=== PATIENT | female | born 1995 | race Hispanic/Latino ===

== ENCOUNTER 2018-04-18 10:51 | Emergency (ER) | payer OTHER ==
[2018-04-18] MEDS ORDERED: TETRACAINE HCL 0.5% 2ML OPTH ONE (12:16)
[2018-04-18] MEDS ORDERED: FLUORESCEIN SODIUM 0.6 MG/WRAP ONE (12:17)
--- NOTE | 2018-04-18 12:47 | EDPHYS ---
Physician Documentation [facility] Name: Keyla Watkins Age: 22 yrs Sex: Female : 1995 Arrival Date: 04/18/2018 Time: 10:52 Bed 30 Private MD: Unknown, Unknown ED Physician Shlomo Pang HPI: 04/18 11:51 This 22 yrs old Female presents to ER via Ambulatory with complaints of Eye jmm Problem. 11:51 The patient is experiencing blurred vision, pain, redness. Onset: The symptoms/episode jmm began/occurred gradually, 1 day(s) ago. Duration: the symptoms are continuous. Aggravated by light. This is a 22 year old female with no chronic medical conditions that presents to the ED with complaints of bilateral eye pain. Patient states developing irritation while at the park yesterday. Patient states she cleaned her contact and put them back in with worsening symptoms. Patient states pain has increased with increased sensitivity to light. . 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 - Social history:: Smoking status: Patient/guardian denies using tobacco. - Ebola Screening: : Patient denies travel to an Ebola-affected area in the 21 days before illness onset. ROS: 11:51 Constitutional: Negative for fever, chills, and weight loss. jmm 11:51 Cardiovascular: Negative for chest pain, palpitations, and edema, Respiratory: Negative for shortness of breath, cough, wheezing, and pleuritic chest pain. 11:51 Eyes: Positive for pain, redness, visual disturbance. 11:51 All other systems are negative. Exam: 11:51 Visual Acuity: The patient's visual acuity was not tested, because the patient was not [facility] able to be examined. 11:51 Head/Face: atraumatic. 11:51 ENT: Moist Mucus Membranes Neck: Trachea midline, Supple Chest/axilla: Normal chest wall appearance and motion. Cardiovascular: Regular rate and rhythm. No edema appreciated Respiratory: Normal respirations, no respiratory distress appreciated Abdomen/GI: Non distended, soft Back: Normal ROM Skin: General appearance color normal MS/ Extremity: Moves all extremities, no obvious deformities appreciated, no edema noted to the lower extremities 11:51 Constitutional: The patient appears alert, awake, uncomfortable. 11:51 Eyes: Extraocular movements: intact throughout, Conjunctiva: injected, bilaterally, Corneas: abrasion, is not appreciated, foreign body, is not appreciated, a fluorescein strip employed to appreciate the findings. Vital Signs: 11:01 BP 139 / 89; Pulse 86; Resp 17; Temp 98.0(TE); Pulse Ox 99% on R/A; Pain 10/10; tw2 MDM: 11:51 Patient medically screened. [facility] 12:44 Data reviewed: vital signs, nurses notes. Counseling: I had a detailed discussion with ellie the patient and/or guardian regarding: the historical points, exam findings, and any diagnostic results supporting the discharge/admit diagnosis, the need for outpatient follow up, to return to the emergency department if symptoms worsen or persist or if there are any questions or concerns that arise at home. 12:57 ED course: Patient continues to have pain the ED. IOP of 22 measured in both eyes. I ion discussed the patient with Dr. Ascencio whom will see the patient in clinic after discharge form the ED. . 04/18 11:51 Order name: Eye Tray; Complete Time: 12:22 [facility] 04/18 11:51 Order name: Fluoresene Opth strip; Complete Time: 12:22 [facility] Administered Medications: 12:01 Drug: Tetracaine Drops 0.5 % 1 drops Route: Ophthalmic; Site: both eyes; Disposition: 14:08 Co-signature as Attending Physician, Shlomo Pang MD I agree with the assessment and kdr plan of care. Disposition: 04/18/18 12:45 Discharged to Home. Impression: Ocular pain, unspecified eye. - Condition is Stable. - Discharge Instructions: Allergic Conjunctivitis, Adult. - Prescriptions for Ocuflox 0.3 % Ophthalmic Drops - instill 2 drop by OPHTHALMIC route every 6 hours for 2 days; 15 milliliter. - Medication Reconciliation Form, Thank You Letter, Antibiotic Education, Prescription Opioid Use form. - Follow up: Richard Ascencio MD; When: Upon discharge from the Emergency Department; Reason: Recheck today's complaints, Continuance of care, Re-evaluation by your physician. Signatures: Shlomo Pang MD MD [facility] Can Velez PA PA jm Kalyn Younger RN RN Enid Paz RN RN tw2 Corrections: (The following items were deleted from the chart) 12:50 11:51 Visual Acuity ordered. [facility] 12:51 12:22 Visual Acuity ordered. [facility] 12:53 12:45 04/18/2018 12:45 Discharged to Home. Impression: Ocular pain, unspecified eye. ss Condition is Stable. Forms are Medication Reconciliation Form, Thank You Letter, Antibiotic Education, Prescription Opioid Use. Follow up: Richard Ascencio; When: Upon discharge from the Emergency Department; Reason: Recheck today's complaints, Continuance of care, Re-evaluation by your physician. ellie
--- NOTE | 2018-04-18 12:47 | ER ---
Nurse's Notes [facility] Name: Keyla Watkins Age: 22 yrs Sex: Female : 1995 Arrival Date: 04/18/2018 Time: 10:52 Bed 30 Private MD: Unknown, Unknown Diagnosis: Ocular pain, unspecified eye Presentation: 04/18 10:59 Presenting complaint: Patient states: yesterday when i put my contacts in they hurt me tw2 and so i took them out, my vision was milky and when i woke up my eyes were better not milky now they are red and swollen, i have allergies but it stinging when i have my eye closed, went to a clinic and they put anesthesia in my eyes, they are numb but they didn't take the stinging away. Transition of care: patient was not received from another setting of care. Onset of symptoms was April 18, 2018. Risk Assessment: Do you want to hurt yourself or someone else? Patient reports no desire to harm self or others. Initial Sepsis Screen: Does the patient meet any 2 criteria? No. Patient's initial sepsis screen is negative. Does the patient have a suspected source of infection? No. Patient's initial sepsis screen is negative. Care prior to arrival: None. 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 - Social history:: Smoking status: Patient/guardian denies using tobacco. - Ebola Screening: : Patient denies travel to an Ebola-affected area in the 21 days before illness onset. Screenin:00 Abuse screen: Denies threats or abuse. Denies injuries from another. Nutritional ss screening: No deficits noted. Tuberculosis screening: No symptoms or risk factors identified. Never had TB. Fall Risk None identified. Assessment: 11:45 General: Appears distressed, uncomfortable, Behavior is cooperative, restless, Denies ss fever, feeling ill, fatigue, chills. Pain: Complains of pain in right eye and left eye Pain currently is 10 out of 10 on a pain scale. Quality of pain is described as burning. Neuro: Level of Consciousness is awake, alert, obeys commands, Oriented to person, place, time, situation, Pupils are PERRLA. Respiratory: Airway is patent Respiratory effort is even, unlabored, Respiratory pattern is regular, symmetrical. GI: Patient currently denies diarrhea, nausea, vomiting. EENT: redness noted to bilateral eyes. Pt reports irritation began yesterday, but became more severe this morning. . Derm: Skin is pink, warm \T\ dry. normal. 12:51 Reassessment: pt appears uncomfortable, but reports relief after tetracaine ss administration. Pt and family verbalize understanding importance of coming straight to Dr. Ascencio's office upon discharge. Vital Signs: 11:01 BP 139 / 89; Pulse 86; Resp 17; Temp 98.0(TE); Pulse Ox 99% on R/A; Pain 10/10; tw2 ED Course: 10:52 Patient arrived in ED. ag5 10:54 Unknown, Unknown is Private Physician. ag5 11:01 Triage completed. tw2 11:02 Arm band placed on. EKG completed in triage. Results shown to MD. tw2 11:42 Can Velez PA [facility] 11:42 Shlomo Pang MD is Attending Physician. [facility] 12:00 Patient has correct armband on for positive identification. Bed in low position. Call ss light in reach. 12:22 Kalyn Younger RN is Primary Nurse. 12:44 Richard Ascencio MD is Referral Physician. [facility] 12:53 No provider procedures requiring assistance completed. Patient did not have IV access ss during this emergency room visit. Administered Medications: 12:01 Drug: Tetracaine Drops 0.5 % 1 drops Route: Ophthalmic; Site: both eyes; ss Outcome: 12:45 Discharge ordered by . neyda 12:[address] Ascencio's office ss 12:53 Condition: good 12:53 Discharge instructions given to patient, family, Instructed on discharge instructions, follow up and referral plans. Demonstrated understanding of instructions, follow-up care. 12:53 Patient left the ED. ss Signatures: Can Velze PA PA jmm Smirch, Shelby, RN RN ss Enid Paz, RN RN tw2 Rachele Gamez ag5
== END 2018-04-18 12:53 | disposition home or self-care (01) ==
LOC: ER 10:51
DX: H57.13 Ocular pain, bilateral (principal)
CPT/HCPCS: 99283

== ENCOUNTER 2021-07-22 15:46 | Emergency (ER) | payer OTHER ==
[2021-07-22] MEDS ORDERED: METOCLOPRAMIDE 10 MG/2mL INJ ONE (16:28)
[2021-07-22] MEDS ORDERED: DIPHENHYDRAMINE 50 MG/ML VIAL ONE (16:28)
[2021-07-22] MEDS ORDERED: NA CHLORIDE 0.9% 1,000 ML ONE (16:28)
[2021-07-22] MEDS ORDERED: KETOROLAC 30 MG/ML INJ ONE (16:28)
--- NOTE | 2021-07-22 17:02 | RAD REPORT ---
EXAM DESCRIPTION: CT - Head Brain Wo Cont - 07/22/2021 4:55 pm CLINICAL HISTORY: Headache, chronic, new features or increased frequency COMPARISON: No comparisons TECHNIQUE: Axial 5 mm thick images of the head were obtained without IV contrast. All CT scans are performed using dose optimization technique as appropriate and may include automated exposure control or mA/KV adjustment according to patient size. FINDINGS: No intracranial hemorrhage, mass, edema or shift of mid-line structures. No acute infarcti on changes seen. No abnormal extra-axial fluid collections. Ventricles are normal. Mastoid air cells and visualized portions of the paranasal sinuses are clear. No acute bony findings. IMPRESSION: Negative non-contrast CT head examination.
--- NOTE | 2021-07-22 18:05 | EDPHYS ---
Physician Documentation [facility] Name: Keyla Watkins Age: 26 yrs Sex: Female : 1995 Arrival Date: 07/22/2021 Time: 15:51 Bed 14 Private MD: ED Physician Pete Bejarano HPI: 07/22 16:11 This 26 yrs old Female presents to ER via Ambulatory with complaints of pm1 Vomiting, Headache. 16:11 The patient complains of pain to the right frontal area, right side of the back of head pm1 and right occipital area. The patient describes the headache as aching, constant. 16:11 Onset: The symptoms/episode began/occurred 1 hour(s) ago. Associated signs and pm1 symptoms: Pertinent negatives: nausea, vomiting. Severity of symptoms: in the emergency department the pain is unchanged. Headache History: The patient has had previous headaches and this one is similar to previous episodes, and this one is more severe than previous episodes. The symptoms are alleviated by Darkened room, quiet, the symptoms are aggravated by lights, noise. The patient has experienced similar episodes in the past, several times. The patient has not recently seen a physician. Historical: - Allergies: 16:06 No Known Allergies; ss - Home Meds: 16:06 None [Active]; ss - PMHx: 16:06 migraines; ss - PSHx: 16:06 None; ss - Immunization history:: Client reports receiving the 2nd dose of the Covid vaccine. - Social history:: Smoking status: Reported history of juuling and/or vaping. Patient uses street drugs, marijuana. ROS: 16:11 Constitutional: Negative for fever, chills, and weight loss, Cardiovascular: Negative pm1 for chest pain, palpitations, and edema, Respiratory: Negative for shortness of breath, cough, wheezing, and pleuritic chest pain. 16:11 Back: Negative for injury and pain, MS/Extremity: Negative for injury and deformity, Skin: Negative for injury, rash, and discoloration. 16:11 Abdomen/GI: Positive for nausea and vomiting, Negative for abdominal pain, diarrhea. 16:11 Neuro: Positive for headache, Negative for numbness, tingling, weakness. 16:11 All other systems are negative. Exam: 16:11 Constitutional: This is a well developed, well nourished patient who is awake, alert, pm1 and in no acute distress. 16:11 MS/ Extremity: Pulses equal, no cyanosis. Neurovascular intact. Full, normal range of motion. 16:11 Head/face: Noted is no obvious of injury or deformity except tenderness, that is moderate, of the right frontal area, right side of the back of head and right occipital area. 16:11 Eyes: Exam is negative for acute changes, Extraocular movements: intact throughout, Conjunctiva: no acute changes, no injection. 16:11 ENT: Exam is negative for acute changes, Mouth: no acute changes, Lips: normal, moist, Oral mucosa: normal, pink and intact, moist. 16:11 Cardiovascular: Exam negative for acute changes, Rate: normal, Rhythm: regular, Pulses: no pulse deficits are appreciated. 16:11 Respiratory: Exam negative for acute changes, respiratory distress, shortness of breath. 16:11 Abdomen/GI: Inspection: obese Palpation: abdomen is soft and non-tender, in all quadrants. 16:11 Neuro: Exam negative for acute changes, Orientation: is normal, Mentation: is normal, Motor: is normal, moves all fours. Vital Signs: 16:00 BP 130 / 76; Pulse 56; Resp 17; Pulse Ox 100% ; Pain 0/10; jh6 16:05 BP 141 / 101; Pulse 82; Resp 18; Temp 97.1(TE); Pulse Ox 100% on R/A; Weight 90.72 kg; ss Height 5 ft. 4 in. (162.56 cm); Pain 9/10; 16:51 BP 122 / 82; Pulse 60; Resp 17; Pulse Ox 100% ; Pain 0/10; jh6 18:07 BP 118 / 76; Pulse 62; Resp 17; Pulse Ox 100% ; Pain 2/10; jh6 16:05 Body Mass Index 34.33 (90.72 kg, 162.56 cm) ss MDM: 16:09 Patient medically screened. pm1 17:08 Data reviewed: vital signs. Data interpreted: Pulse oximetry: on room air is 100 %. pm1 Interpretation: normal. 18:04 Counseling: I had a detailed discussion with the patient and/or guardian regarding: the pm1 historical points, exam findings, and any diagnostic results supporting the discharge/admit diagnosis, radiology results, the need for outpatient follow up, to return to the emergency department if symptoms worsen or persist or if there are any questions or concerns that arise at home. 07/22 16:11 Order name: CT Head Brain wo Cont; Complete Time: 17:06 pm1 07/22 16:11 Order name: IV Saline Lock; Complete Time: 16:35 pm1 Administered Medications: 16:45 Drug: Benadryl (diphenhydrAMINE) 25 mg Route: IVP; Site: left hand; do 16:46 Follow up: Response: No adverse reaction do 16:45 Drug: NS 0.9% 1000 ml Route: IV; Rate: 1000 ml; Site: left hand; do 16:46 Drug: Ketorolac 30 mg Route: IVP; Site: left hand; do 16:47 Follow up: Response: No adverse reaction do 16:46 Drug: Reglan (metoCLOPramide) 10 mg Route: IVP; Site: left hand; do 16:46 Follow up: Response: No adverse reaction do Disposition Summary: 07/22/21 18:04 Discharge Ordered Location: Home pm1 Problem: new pm1 Symptoms: have improved pm1 Condition: Stable pm1 Diagnosis - Headache pm1 Followup: pm1 - With: Emergency Department - When: As needed - Reason: Worsening of condition Followup: pm1 - With: Private Physician - When: 2 - 3 days - Reason: Recheck today's complaints, Continuance of care, Re-evaluation by your physician Discharge Instructions: - Discharge Summary Sheet pm1 - General Headache Without Cause pm1 Forms: - Medication Reconciliation Form pm1 - Thank You Letter pm1 - Antibiotic Education pm1 - Prescription Opioid Use pm1 Prescriptions: - rqdnblerpp-[id number]-zutuiquf - take 1 tablet by ORAL route every 4 hours As needed; 20 tablet; Refills: 0, pm1 Product Selection Permitted - ondansetron 4 mg Oral tablet,disintegrating - take 1 tablet by ORAL route every 8 hours As needed; 12 tablet; Refills: 0, pm1 Product Selection Permitted Signatures: Dispatcher [employer] Kalyn Ribeiro RN RN ss Marinas, Patrick, NP SCOURING PADS SUPERVISOR pm1 Birdie-Fiordaliza Vargas RN RN ha
--- NOTE | 2021-07-22 18:05 | ER ---
Nurse's Notes [facility] Name: Keyla Watkins Age: 26 yrs Sex: Female : 1995 Arrival Date: 07/22/2021 Time: 15:51 Bed 14 Private MD: Diagnosis: Headache Presentation: 07/22 16:05 Chief complaint: Patient states: N/V and headache that began 40-50 minutes ago. Pt has ss a hx of migraines, but states that this is not like the other migraines she has had in the past. Coronavirus screen: Client denies travel out of the [place] in the last 14 days. Ebola Screen: Patient denies exposure to infectious person. Patient denies travel to an Ebola-affected area in the 21 days before illness onset. Initial Sepsis Screen: Does the patient meet any 2 criteria? No. Patient's initial sepsis screen is negative. Does the patient have a suspected source of infection? No. Patient's initial sepsis screen is negative. Risk Assessment: Do you want to hurt yourself or someone else? Patient reports desire/thoughts of hurting themselves or someone else. Provider notified. Onset of symptoms was July 22, 2021. 16:05 Method Of Arrival: Ambulatory ss 16:05 Acuity: ALEKSANDAR 2 ss Historical: - Allergies: 16:06 No Known Allergies; ss - Home Meds: 16:06 None [Active]; ss - PMHx: 16:06 migraines; ss - PSHx: 16:06 None; ss - Immunization history:: Client reports receiving the 2nd dose of the Covid vaccine. - Social history:: Smoking status: Reported history of juuling and/or vaping. Patient uses street drugs, marijuana. Screenin:29 Abuse screen: Denies threats or abuse. Denies injuries from another. Nutritional jh6 screening: No deficits noted. Tuberculosis screening: No symptoms or risk factors identified. Fall Risk IV access (20 points). Assessment: 16:27 General: Appears uncomfortable, obese, well groomed, Behavior is anxious. Pain: 6 Complains of pain in face Pain currently is 10 out of 10 on a pain scale. Quality of pain is described as throbbing, Pain began suddenly, Is continuous, Aggravated by light and noise. Neuro: Oriented to person, place, time, [place] Digger are equal bilaterally Moves all extremities. Gait is unsteady, Pupils are PERRLA, Reports photophobia. GI: Abdomen is obese, Bowel sounds present X 4 quads. Abd is soft and non tender Reports nausea, vomiting. 17:30 Reassessment: Patient and/or family updated on plan of care and expected duration. Pain jh6 level reassessed. Patient is alert, oriented x 3, equal unlabored respirations, skin warm/dry/pink. Patient states feeling better. 17:30 Pain: Pain currently is 2 out of 10 on a pain scale. GI: No deficits noted. No signs jh6 and/or symptoms were reported involving the gastrointestinal system. Vital Signs: 16:00 BP 130 / 76; Pulse 56; Resp 17; Pulse Ox 100% ; Pain 0/10; jh6 16:05 BP 141 / 101; Pulse 82; Resp 18; Temp 97.1(TE); Pulse Ox 100% on R/A; Weight 90.72 kg; Height 5 ft. 4 in. (162.56 cm); Pain 9/10; 16:51 BP 122 / 82; Pulse 60; Resp 17; Pulse Ox 100% ; Pain 0/10; jh6 18:07 BP 118 / 76; Pulse 62; Resp 17; Pulse Ox 100% ; Pain 2/10; jh6 16:05 Body Mass Index 34.33 (90.72 kg, 162.56 cm) ED Course: 15:51 Patient arrived in ED. ds1 16:01 Brooks Wilson NP is PHCP. pm1 16:01 Pete Bejarano MD is Attending Physician. pm1 16:06 Triage completed. ss 16:06 Arm band placed on right wrist. ss 16:19 Trena Joy, YONAS is Primary Nurse. jh6 16:29 Bed in low position. Call light in reach. Side rails up X 1. jh6 16:35 Inserted saline lock: 20 gauge in left hand, using aseptic technique. mb7 16:36 Door closed. Noise minimized. mb7 16:50 No provider procedures requiring assistance completed. jh6 16:[address] jh6 16:55 IV discontinued, intact, bleeding controlled, No redness/swelling at site. Pressure jh6 dressing applied. 16:57 CT Head Brain wo Cont In Process Unspecified. EDMS Administered Medications: 16:45 Drug: Benadryl (diphenhydrAMINE) 25 mg Route: IVP; Site: left hand; do 16:46 Follow up: Response: No adverse reaction do 16:45 Drug: NS 0.9% 1000 ml Route: IV; Rate: 1000 ml; Site: left hand; do 16:46 Drug: Ketorolac 30 mg Route: IVP; Site: left hand; do 16:47 Follow up: Response: No adverse reaction do 16:46 Drug: Reglan (metoCLOPramide) 10 mg Route: IVP; Site: left hand; do 16:46 Follow up: Response: No adverse reaction Outcome: 17:03 Discharged to home via wheelchair. 6 17:03 Condition: improved 17:03 Discharge instructions given to patient, family, Instructed on discharge instructions, follow up and referral plans. Demonstrated understanding of instructions, follow-up care, medications, Prescriptions given X 2. 18:04 Discharge ordered by MD. pm1 18:47 Patient left the ED. [facility] Signatures: Dispatcher [employer] EDOK Arias, Chrissie ds1 Kalyn Younger, Brooks Meza RN, JU[employer] EXTENSION EDGER pm1 Trena Joy RN RN [facility] Tiffanie Galicia mb7 Fiordaliza Kelly RN RN Corrections: (The following items were deleted from the chart) 17:02 15:30 BP 130 / 76; Pulse 56bpm; Resp 17bpm; Pulse Ox 100%; Pain 0/10; [place] [id number]
[2021-07-22] MEDS ORDERED: AZITHROMYCIN 250 MG TAB ONE (18:30)
[2021-07-22] MEDS ORDERED: CEFTRIAXONE 250 MG/VIAL ONE (18:30)
[2021-07-22 18:57] VITALS: O2SAT 100
[2021-07-22 18:58] VITALS: TEMP 97.1
[2021-07-22 19:02] VITALS: BP 118/76
== END 2021-07-22 18:47 | disposition home or self-care (01) ==
LOC: ER 15:46
DX: R51.9 Headache, unspecified (principal); R11.2 Nausea with vomiting, unspecified
CPT/HCPCS: 70450; 96375; 96374; 99284; J2765; J1200; J7030; J0696